=== PATIENT | male | born 1975 | race Caucasian/White ===

== ENCOUNTER 2022-10-09 15:06 | Emergency (ER) | payer MEDICAID, OTHER ==
[~2022-10-09] VITALS: Ht 177.8 cm; Wt 69.0 kg
--- NOTE | 2022-10-09 16:27 | NUR ---
Pt in [facility]. Pt came in for a laceration to L index finger, L thumb aprox 2 hours ago. Pain 10/10 constant throbbing. Pt educated to POC. Pt in agreement. Pending MD tabares and treatment.
[2022-10-09] MEDS ORDERED: TETanus/Pertussis (Acell)/Diphther VAC/PF (Tdap-Adult) 0.5ml syringe IMVAC ONE (16:30)
[2022-10-09] MEDS ORDERED: ibuprofen tablet 400 MG TABLET PO ONE (17:20)
[2022-10-09] MEDS ORDERED: acetaminophen 325mg tablet PO ONE (17:20)
[2022-10-09] MEDS: LIDOcaine 1% 30ml preserv. free vial IJ ONE ×2 (17:23→17:24)
[2022-10-09 18:04] VITALS: BP 145/89
== END 2022-10-09 18:20 | disposition home or self-care (01) ==
LOC: ER 15:07
DX: S61.012A Laceration without foreign body of left thumb without damage to nail, initial encounter (principal); W26.0XXA Contact with knife, initial encounter; Y93.89 Activity, other specified; Y92.89 Other specified places as the place of occurrence of the external cause; Y99.8 Other external cause status
CPT/HCPCS: 73140; 90471; 90715; 99283; A6266; J7030; A6449; J3490